=== PATIENT | male | born 1960 | race Two or more races ===

== ENCOUNTER 2024-10-01 07:45 | Inpatient (IN) | payer OTHER ==
[~2024-10-01] VITALS: Ht 162.6 cm; Wt 81.6 kg
[2024-10-01 08:14] VITALS: BP 150/80
[2024-10-01 08:18] LABS: HEMATOCRIT 41.3 % (39.0-48.0); HEMOGLOBIN 13.8 g/dL (13-16.00); MEAN CELL VOLUME 92.4 fL (80.0-100.00); MEAN CORPUSCULAR HEMOGLOBIN 30.8 pg (27.00-32.0); MEAN CORPUSCULAR HGB CONC 33.4 g/dl (32.0-36.0); PLATELET COUNT 317 K/uL (150-450); RED BLOOD COUNT 4.47 M/uL (4.00-6.00); RED CELL DISTRIBUTION WIDTH 14.8 % (11.5-14.5)
[2024-10-01 08:21] LABS: PH,URINE 6.5 (5.0-8.0); URINE APPEARANCE Clear; URINE BILIRRUBIN Negative (NEGATIVE); URINE BLOOD Negative; URINE COLOR Yellow; URINE GLUCOSE Negative (NEGATIVE); URINE KETONE Negative (NEGATIVE); URINE LEUKOCYTE Negative; URINE NITRATE Negative; URINE PROTEIN Negative (NEGATIVE); URINE UROBILINOGEN 0.2 E.U./dl
[2024-10-01] MEDS ORDERED: DILANTIN100 MG (08:21)
[2024-10-01] MEDS ORDERED: XELPROS2.5 ML (08:21)
[2024-10-01 08:24] LABS: URINE RBC 2.7 uL (0.0-20.8)
[2024-10-01 08:48] LABS: INR 0.99; PARTIAL THROMBOPLASTIN TIME 28.1 SECONDS (22.0-34.0); PROTHROMBIN TIME 10.8 SECONDS (9.0-11.5)
[2024-10-01 08:54] LABS: CALCIUM 9.3 mg/dL (8.5-10.1); CREATININE SERUM 0.82 mg/dL (0.70-1.30); GFR 94.89; POTASSIUM 4.66 mEq/L (3.5-5.1)
[2024-10-01 09:14] LABS: URINE BACTERIA 1.2 uL (0.0-1933); URINE EPITHELIAL CELLS 0.1 uL (0.0-38.8); URINE WBC 0 uL (0.0-23.2)
[2024-10-01 09:41] LABS: RH POSITIVE
[2024-10-10] MEDS ORDERED: CHLORHEXIDINE GLUCONATE 120 ML BOTTLE TOP ONE (09:15)
[2024-10-10] MEDS ORDERED: CEFAZOLIN SODIUM 1,000 MG VIAL IJ ONE (09:15)
[2024-10-10] MEDS ORDERED: ENOXAPARIN SODIUM 40 MG/0.4 ML SYRINGE SUBCUTANEO ONE (09:15)
[2024-10-10] MEDS ORDERED: SUGAMMADEX SODIUM 200 MG/2 ML VIAL IV ONE (11:00)
[2024-10-10] MEDS ORDERED: DEXTROSE 5 %-0.45 % SOD CHLORD 1,000 ML IV SCH (11:41)
[2024-10-10] MEDS ORDERED: SIMETHICONE 125 MG CAPSULE PO SCH (11:43)
[2024-10-10] MEDS ORDERED: MORPHINE SULFATE 4 MG/ML CARTRIDGE IV PRN (11:45)
[2024-10-10] MEDS ORDERED: ONDANSETRON HCL 2 MG/ML VIAL IV PRN (11:45)
[2024-10-10] MEDS ORDERED: CEFAZOLIN SODIUM 1,000 MG VIAL IV SCH (17:00)
[2024-10-10] MEDS ORDERED: FAMOtidine 20 MG TABLET PO SCH (17:00)
[2024-10-10] MEDS ORDERED: DOCUSATE SODIUM 100MG CAP PO SCH (17:00)
[2024-10-11 00:42] VITALS: BP 131/75; O2SAT 95
[2024-10-11 08:00] VITALS: BP 145/80; O2SAT 99
[2024-10-11 08:48] LABS: HEMATOCRIT 40.4 % (39.0-48.0); HEMOGLOBIN 13.4 g/dL (13-16.00); MEAN CELL VOLUME 94.4 fL (80.0-100.00); MEAN CORPUSCULAR HEMOGLOBIN 31.4 pg (27.00-32.0); MEAN CORPUSCULAR HGB CONC 33.2 g/dl (32.0-36.0); PLATELET COUNT 260 K/uL (150-450); RED BLOOD COUNT 4.28 M/uL (4.00-6.00); RED CELL DISTRIBUTION WIDTH 15.1 % (11.5-14.5)
[2024-10-11 08:56] LABS: CALCIUM 8.3 mg/dL (8.5-10.1); GFR 75.47; POTASSIUM 4.59 mEq/L (3.5-5.1)
[2024-10-11] MEDS ORDERED: ENOXAPARIN SODIUM 40 MG/0.4 ML SYRINGE SUBCUTANEO SCH (09:00)
[2024-10-11] MEDS ORDERED: PHENYTOIN SODIUM EXTENDED 100 MG CAPSULE PO SCH (09:00)
[2024-10-12] VITALS: BP 170/90; O2SAT 100
[2024-10-12 08:00] VITALS: BP 148/96; O2SAT 98
[2024-10-12] MEDS ORDERED: ENALAPRILAT DIHYDRATE 1.25 MG/ML VIAL IV PRN (15:00)
== END 2024-10-12 16:20 | disposition home or self-care (01) | DRG 708 ==
LOC: O/R 10-10 05:11 → SURG 10-10 07:00 → LDR 10-10 07:45 → SURG 10-10 07:45 → SURH 10-10 13:29 → SURG 10-10 15:15
PROVIDERS: ADMIT Urology; ATTEND Urology
PROC: 07BC4ZZ Excision of Pelvis Lymphatic, Percutaneous Endoscopic Approach (ICD-10-PCS; 2024-10-10)
PROC: 0VT00ZZ Resection of Prostate, Open Approach (ICD-10-PCS; principal; 2024-10-10 07:00)
DX: C61 Malignant neoplasm of prostate (principal)